=== PATIENT | male | born 1985 | race Caucasian/White ===

== ENCOUNTER → 2021-01-29 | Outpatient (CLI) | payer OTHER ==
[2021-02-06 16:12] LABS: AMPHETAMINES, URINE Negative ng/mL (Cutoff=1000); BARBITURATE Negative ng/mL (Cutoff=200); BENZODIAZEPINES Negative ng/mL (Cutoff=200); CANNABINOID Positive (Cutoff=20); CANNABINOIDS See Final Results ng/mL (Cutoff=20); CARBOXY THC GC/MS CONF 24 ng/mL (Cutoff=10); COCAINE (METABOLITE) Negative ng/mL (Cutoff=300); CREATININE 85.3 mg/dL (20.0-300.0); MEPERIDINE Negative ng/mL (Cutoff=200); METHADONE Negative ng/mL (Cutoff=300); OPIATES Negative ng/mL (Cutoff=300); PHENCYCLIDINE Negative ng/mL (Cutoff=25); PROPOXYPHENE Negative ng/mL (Cutoff=300)
== END ==
LOC: LAB 16:44
PROVIDERS: Nurse Practitioner
DX: F15.20 Other stimulant dependence, uncomplicated (principal); F11.20 Opioid dependence, uncomplicated; F32.9 Major depressive disorder, single episode, unspecified; F51.5 Nightmare disorder; G47.9 Sleep disorder, unspecified; B17.10 Acute hepatitis C without hepatic coma; F17.208 Nicotine dependence, unspecified, with other nicotine-induced disorders; B20 Human immunodeficiency virus [HIV] disease; J45.20 Mild intermittent asthma, uncomplicated; M54.5 Low back pain
CPT/HCPCS: 80307

== ENCOUNTER → 2021-03-04 | Outpatient (CLI) | payer OTHER ==
[2021-03-10 10:10] LABS: AMPHETAMINES, URINE Negative ng/mL (Cutoff=1000); BARBITURATE Negative ng/mL (Cutoff=200); BENZODIAZEPINES Negative ng/mL (Cutoff=200); CANNABINOID Positive (Cutoff=20); CANNABINOIDS See Final Results ng/mL (Cutoff=20); CARBOXY THC GC/MS CONF 286 ng/mL (Cutoff=10); COCAINE (METABOLITE) Negative ng/mL (Cutoff=300); MEPERIDINE Negative ng/mL (Cutoff=200); METHADONE Negative ng/mL (Cutoff=300); OPIATES Negative ng/mL (Cutoff=300); PHENCYCLIDINE Negative ng/mL (Cutoff=25); PROPOXYPHENE Negative ng/mL (Cutoff=300)
== END ==
LOC: LAB 13:20
PROVIDERS: Nurse Practitioner
DX: F15.20 Other stimulant dependence, uncomplicated (principal); F10.20 Alcohol dependence, uncomplicated; F11.20 Opioid dependence, uncomplicated; F32.9 Major depressive disorder, single episode, unspecified; F51.5 Nightmare disorder; G47.9 Sleep disorder, unspecified; B17.10 Acute hepatitis C without hepatic coma; J45.20 Mild intermittent asthma, uncomplicated; M54.5 Low back pain; F17.208 Nicotine dependence, unspecified, with other nicotine-induced disorders
CPT/HCPCS: 36415; 80307

== ENCOUNTER → 2021-09-05 | Outpatient (CLI) | payer OTHER ==
[2021-09-05 14:00] LABS: HEMOGLOBIN 15.5 gm/dl (14.0-17.5); RED BLOOD COUNT 4.68 M/UL (4.20-5.50); WHITE BLOOD COUNT 6.7 K/UL (4.5-11.0)
[2021-09-05 14:32] LABS: BUN/CREATININE RATIO 9 (0-10)
== END ==
LOC: LAB 12:57
PROVIDERS: Family Medicine
DX: B19.20 Unspecified viral hepatitis C without hepatic coma (principal); R10.9 Unspecified abdominal pain; M54.9 Dorsalgia, unspecified
CPT/HCPCS: 36415; 80053; 84443; 85027

== ENCOUNTER → 2021-10-03 | Outpatient (CLI) | payer OTHER | LOC: EXRD 14:59 | DX: M54.50 Low back pain, unspecified (principal); M40.46 Postural lordosis, lumbar region | CPT/HCPCS: 72110 ==

== ENCOUNTER → 2021-10-10 | Outpatient (CLI) | payer OTHER | LOC: EXRD 09:03 | DX: N50.812 Left testicular pain (principal) | CPT/HCPCS: 76870 ==